=== PATIENT | male | born 1955 | race Caucasian/White ===

== ENCOUNTER 2018-05-31 10:46 | Day surgery (SDC) | payer OTHER ==
--- NOTE | 2018-05-27 20:19 | HP ---
PREOPERATIVE HISTORY AND PHYSICAL: DATE OF ADMISSION/SURGERY: 05/31/18 - [facility] DATE OF OFFICE VISIT: 05/27/18 ATTENDING SURGEON: Dede Dinh MD * (DICTATED BY IRAM ELKINS) PROCEDURE: Left shoulder arthroscopic rotator cuff repair, decompression and debridement, excision of distal clavicle and subpectoral biceps tenodesis. CHIEF COMPLAINT: Left shoulder. HISTORY OF PRESENT ILLNESS: Mr. Brenner is a 62-year-old male, who presents to the clinic for left shoulder pain due to rotator cuff tear, biceps tendinitis and AC joint arthritis. He has failed conservative measures and therefore agreed to undergo a left shoulder arthroscopic rotator cuff repair, decompression, debridement, excision of distal clavicle, and subpectoral biceps tenodesis with Dr. Dinh on 05/31/18. PAST MEDICAL HISTORY: Hypertension, history of heart attack with quadruple bypass, high cholesterol, arthritis, diverticulosis; non-Hodgkin lymphoma, he has been cancer free for 3 years, and BPH. PAST SURGICAL HISTORY: Right knee arthroscopy, right knee meniscus x2 and quadruple bypass in 2003, also placement of Mediport. The patient denies prior complications with anesthesia. MEDICATIONS: 1. Metoprolol succinate 50 mg 1 by mouth every day in the morning. 2. Niacin 500 mg 1 tablet at night. 3. Aspirin 81 mg 1 by mouth every day. 4. Colace 100 mg 1 by mouth twice a day as needed for constipation. 5. Multivitamin one daily. 6. Rosuvastatin calcium 20 mg 1 by mouth every day. 7. Irbesartan 150 mg, take 1 tab by mouth every day. ALLERGIES: To CONTRAST DYE. FAMILY HISTORY: Positive for heart disease, hypertension, cancer. Denies family history of DVT or PE. SOCIAL HISTORY: He lives with his spouse. He is a professor at [employer]. He quit smoking in 1986 but smoked for 10 years. He reports occasional alcohol consumption about 7 beverages a week. He exercises regularly. He is right hand dominant. REVIEW OF SYSTEMS: A 14-point review of systems was reviewed with the patient. Positive for current complaint, otherwise negative. Denies fever, chills, chest pain, shortness of breath, history of DVT or PE, history of bleeding disorder. PHYSICAL EXAMINATION GENERAL: A 62-year-old well-developed, well-nourished male in no acute distress. VITAL SIGNS: Height 70, weight 236. Blood pressure 130/66, respiratory rate 18. BMI 33.9. HEENT: Normocephalic, atraumatic. PERRL. Throat clear. NECK: Supple. PULMONARY: Lungs are clear to auscultation bilaterally. No wheezing, rhonchi or rales. CARDIO: Regular rate and rhythm. S1 and S2. No murmurs, gallops or rubs. No edema. ABDOMEN: Positive bowel sounds, soft, nontender. NEURO: Alert and oriented x3. Cranial nerves grossly intact. Sensation intact to light touch. MUSCULOSKELETAL: Left upper extremity, skin is intact. No warmth or erythema. Tenderness over the bicipital groove and the AC joint. Forward flexion, abduction 175, external rotation 75, internal rotation T6. +4 to 5 strength on supraspinatus testing. +4 to 5 to infraspinatus testing. +5/5 to belly press and bear hug. Positive [place], Speed, impingement and Cool testing. +2 radial pulses. Sensation intact to light touch distally. DIAGNOSTIC STUDIES/LAB DATA: MRI and x-rays reveal full thickness tear of the supraspinatus tendon and AC joint arthritis with some biceps tendinitis of the left shoulder. IMPRESSION: Left shoulder acromioclavicular joint arthritis, biceps tendinitis and rotator cuff tear. PLAN/RECOMMENDATIONS: The patient is scheduled to undergo a left shoulder arthroscopic rotator cuff repair, decompression, debridement, excision distal clavicle and subpectoral biceps tenodesis with Dr. Dinh on 05/31/18. He will follow up 10 to 14 days postop for followup and suture removal. Percocet will be used for postop pain management and Keflex for antibiotic prophylaxis. IRAM ELKINS [id number]/[facility] #: [id number] MTDD
[~2018-05-31 10:46] MED LIST: Buffered Lidocaine 0.9% SYRIN* 5 ML/SYR SYRINGE INTRADERM ONE; Dexamethasone IV* 4 MG/ML 1 ML (4 MG) IV SLOW PU ONE; Famotidine IV* 10 MG/ML 2 ML (20 mg) IV ONE; Lactated Ringers 1000 ML Bag* 1,000 ML IV SCH
[2018-05-31] MEDS ORDERED: ceFAZolin 2 GM PREMIX in ORs 2 GM/50 ML BAG IVPB ONE (10:56)
[2018-05-31] MEDS ORDERED: Dexamethasone IV* 4 MG/ML 1 ML (4 MG) ONE (10:56)
[2018-05-31] MEDS ORDERED: Famotidine IV* 10 MG/ML 2 ML (20 mg) ONE (10:56)
[2018-05-31] MEDS ORDERED: Lidocaine 2% PF * 5 ML VIAL ONE (11:57)
[2018-05-31] MEDS ORDERED: Propofol* 10 MG/ML 20 ML BTL ONE (11:57)
[2018-05-31] MEDS ORDERED: Midazolam* 1 MG/ML 2 ML VIAL (2 MG) ONE (11:58)
[2018-05-31] MEDS ORDERED: fentaNYL* 50 MCG/ML 2 ML VIAL (100 MCG VIAL) ONE ×2 (11:58→14:19)
[2018-05-31] MEDS ORDERED: ROPIVACAINE 5 MG/ML 30 ML BTL (0.5%) ONE ×2 (12:23→12:33)
[2018-05-31] MEDS ORDERED: Ondansetron INJ* 2 MG/ML VIAL ONE (14:21)
[2018-05-31] MEDS ORDERED: DiMENhydriNATE IV* 50 MG/ML VIAL IV PUSH PRN (15:13)
[2018-05-31] MEDS ORDERED: fentaNYL* 50 MCG/ML 2 ML VIAL (100 MCG VIAL) IV PRN (15:13)
[2018-05-31] MEDS ORDERED: Naloxone* 0.4 MG/ML 1 ML VIAL IV PRN (15:13)
[2018-05-31] MEDS ORDERED: oxyCODONE/Acetamin 5/325 MG* TAB PO PRN (15:13)
[2018-05-31] MEDS ORDERED: HYDROcodone/ACETAMIN 5-325 MG* 1 TAB PO PRN (15:13)
[2018-05-31] MEDS ORDERED: Ketorolac INJ* 30 MG/ML 1 ML VIAL IV PRN (15:13)
[2018-05-31 15:38] VITALS: BP 114/61
--- NOTE | 2018-06-01 11:31 | OP ---
DATE OF OPERATION: 05/31/18 [facility] DATE OF : 57 SURGEON: Dede Dinh MD SNUFF BLENDER: IRAM Kim. An plastic surgery assistant was needed for the entirety of the case to help with positioning and retraction, and was utilized throughout all portions of the case. ANESTHESIOLOGIST: Dr. Dahl. ANESTHESIA: General with interscalene block. PRE-OP DIAGNOSIS: Left shoulder full-thickness tear of the rotator cuff with acromioclavicular joint arthritis and superior labrum SLAP type 2 tear with bicipital tendonitis and tendinosis. POST-OP DIAGNOSIS: Left shoulder full-thickness tear of the rotator cuff with acromioclavicular joint arthritis and superior labrum SLAP type 2 tear with bicipital tendonitis and tendinosis. OPERATIVE PROCEDURE: Left shoulder arthroscopy with: 1. Extensive glenohumeral debridement. 2. Subacromial decompression with acromioplasty. 3. Distal clavicle excision. 4. Rotator cuff repair. 4. Open subpectoral biceps tenodesis. COMPLICATIONS: None. ESTIMATED BLOOD LOSS: Minimal. INDICATIONS: Prashant Brenner is a 62-year-old male who sustained an injury in January when he was playing golf; after he had a drive, he had felt a pop. He was treated initially by my Sports Medicine colleague, but he continued to struggle. He had MRI indicating full-thickness tear. He elected to proceed with surgical treatment. Risks and benefits were discussed at length including , but are not limited to, bleeding; infection; damage to nerves, vessels, surrounding structures; wound nonhealing; persistent pain, need for further surgery; scarring; stiffness; incomplete relief of symptoms; risk of anesthesia. DESCRIPTION OF PROCEDURE: The patient was greeted in the preoperative area by the attending surgeon. The correct extremity was marked. Consent was confirmed. The patient then underwent interscalene nerve block, after which he was brought back to the operating suite where he was placed in supine position on the operating table. He then underwent general anesthesia with endotracheal intubation, after which he was placed in the right lateral decubitus position with axillary roll. All bony prominences were padded. He was secured with a pegboard. The left shoulder was prepped and draped in the usual sterile fashion beginning with chlorhexidine soap, scrub, and alcohol wipe and final prep with ChloraPrep. After appropriate surgical pause indicating side, site, procedure, and administration of antibiotics, standard postero-lateral portal was made sharply with #11 blade. The scope was introduced into the joint and the joint was examined. There were grade 0 to 1 changes. The anterior, posterior, and superior labrum had mild fraying. The inferior recess was intact. The superior labrum had tearing as well as the biceps tendinosis and tendinopathy. Anterior portal was made in an outside-in fashion. The biceps was then tenotomized. The anterior, posterior, and superior labrums were debrided back. The subscap was found to be intact with significant amounts of synovitis. There was evidence of full-thickness retracted tear to the level of the glenoid. Once this intraarticular work was completed, attention was directed to the subacromial space. With the scope in the subacromial space, the lateral port was made in outside fashion. Shaver was used to debride back the abundant bursa. There was evidence of full-thickness L-shaped tear with significant retraction involving supra and part of the infraspinatus tendon. At this point, the undersurface of the acromion was skeletonized using the electrocautery device. This was irregular acromion. The shaver was used to debride back the bursa. Care was taken to maintain hemostasis. There were significant friable tissue. The CA ligament was released. A 4.0 oval bur was used to remove acromioplasty. This helped to expose the AC joint, which was also irregular and inferior spur as well as stenosis. Attention was then directed to the AC joint. The scope positioned into the anterior portal side, the distal 8 cm. The clavicles were then resected using 4.0 oval bur. Once the inspection was done, the cannula was taken through some gentle range of motion. No evidence of impingement was identified. Final images were obtained. The debris was removed at this point and attention was directed to rotator cuff. The greater tuberosity was skeletonized. There was evidence of some of the rotator cuff still being attached indicating this was a traumatic type of tear. The shaver and electrocautery device was used to expose the greater tuberosity , which was then rasped and then 4.0 oval bur was used to gently decorticate. At this point, the cuff tissue was then carefully mobilized, any adhesions were removed. The cuff was found to be able to fully restore as it was large outside shape tendon. Of course, there was some tearing and there was some fraying. The tissue quality was okay. At this point, through 2 separate stab incisions, two 4.75 Healicoils were placed with excellent purchase. Suture was then passed in a horizontal mattress configuration. Beginning at the corner of the L, then I want to make sure if it was reapproximated. This helped to nicely reapproximate the tendon. The sutures were then tied down beginning anteriorly and then posteriorly. Once chamfers were made, suture was then passed through a Multifix to be placed anterolaterally and remaining chamfers were passed posterolaterally through Multifix with excellent purchase. This helped to compress the cuff and restore the cuff. Final images were obtained. Attention was then directed to the biceps. The bed was airplaned to the left side. The anterior aspect of the shoulder was prepped with ChloraPrep, 15-blade was used to make an incision. The soft tissues were carefully dissected to expose the pec and fascia was then elevated. The groove was identified. Next, the fascia was elevated. The biceps was brought through the groove and then, the groove was then prepared in usual fashion with electrocautery device, the red ball rasp, and osteotome for bony bleeding bed. Q- Fix was then drilled unicortically with excellent purchase. Q-Fix was deployed with excellent purchase. Sutures were then passed through the tendon in a Leif- West type configuration approximately 1 cm to the proximal musculotendinous junction. Excess stump was excised. The wounds were copiously irrigated with sterile saline. The anterior wound was closed in layers of 2-0 Vicryl and 3-0 Monocryl, ports with 3-0 nylon. Sterile dressings were applied. Cryo/Cuff and an UltraSling were applied. He was awoken from anesthesia and then transferred to the PACU in stable condition. POSTOPERATIVE PLAN: He will be discharged on pain medication as well as antibiotics. DVT prophylaxis was considered, but deferred due to no previous personal or family history. I will see the patient back in 10 to 14 days. [id number]/[facility] #: [id number] [facility]ENTER[facility]aley
== END 2018-05-31 16:08 | disposition home or self-care (01) ==
LOC: OREAST 10:46
PROVIDERS: ATTEND Orthopaedic Surgery
DX: M19.212 Secondary osteoarthritis, left shoulder (principal); M75.122 Complete rotator cuff tear or rupture of left shoulder, not specified as traumatic; I10 Essential (primary) hypertension; I25.2 Old myocardial infarction; Z85.72 Personal history of non-Hodgkin lymphomas; M19.90 Unspecified osteoarthritis, unspecified site; Z79.82 Long term (current) use of aspirin; Z79.899 Other long term (current) drug therapy; Z87.891 Personal history of nicotine dependence; G89.18 Other acute postprocedural pain
CPT/HCPCS: C1713; C1776; J0690; J1100; J2250; J2405; J2704; J2795; J3010

== ENCOUNTER 2022-05-27 11:51 | Observation (INO) ==
[~2022-05-27 11:51] MED LIST changes: -Buffered Lidocaine 0.9% SYRIN* 5 ML/SYR SYRINGE INTRADERM ONE; +Buffered Lidocaine 1% SYRIN 1 ml INTRADERM ONE; -Dexamethasone IV* 4 MG/ML 1 ML (4 MG) IV SLOW PU ONE; -Famotidine IV* 10 MG/ML 2 ML (20 mg) IV ONE; -Lactated Ringers 1000 ML Bag* 1,000 ML IV SCH; +Lactated Ringers 1000 ml BAG 1,000 ML IV SCH
[2022-05-27] MEDS ORDERED: ceFAZolin 2 GM PREMIX 2 GM/50 ML BAG ONE (12:13)
[2022-05-27] MEDS ORDERED: Midazolam 2 mg/2 ml VIAL 1 mg/ml 2 ml VIAL (2 mg) ONE ×2 (13:35→14:17)
[2022-05-27] MEDS ORDERED: ROPIVACAINE 5 MG/ML 30 ML BTL (0.5%) ONE ×2 (13:38→14:35)
[2022-05-27] MEDS ORDERED: Magnesium Hydroxide LIQ 30 ML UDC PO PRN (14:25)
[2022-05-27] MEDS ORDERED: Lactulose 30 ml UDC PO PRN (14:25)
[2022-05-27] MEDS ORDERED: Morphine 2 MG/ML SYRINGE IV PRN (14:25)
[2022-05-27] MEDS ORDERED: Ondansetron 4 mg VIAL 2 MG/ML 2 ml VIAL IV PRN ×2 (14:25→19:12)
[2022-05-27] MEDS ORDERED: Ondansetron ODT 4 mg TAB 4 MG TAB PO PRN (14:25)
[2022-05-27] MEDS ORDERED: Lactated Ringers 1000 ml BAG 1,000 ML IV SCH (15:00)
[2022-05-27] MEDS ORDERED: Propofol 10 MG/ML 20 ML BTL ONE ×2 (16:04→17:01)
[2022-05-27] MEDS ORDERED: Ketamine HCL 50 mg/ml 10 ml VIAL (500 MG) ONE (16:19)
[2022-05-27] MEDS ORDERED: Glycopyrrolate IV 0.2 MG/ML 1 ML VIAL ONE (16:19)
[2022-05-27] MEDS ORDERED: fentaNYL 100 mcg/2 ml 50 MCG/ML VIAL ONE (19:06)
[2022-05-27] MEDS ORDERED: HYDROmorphone 1 MG/1 ML SYRINGE IV PRN (19:12)
[2022-05-27] MEDS ORDERED: fentaNYL 100 mcg/2 ml 50 MCG/ML VIAL IV PRN (19:12)
[2022-05-27] MEDS ORDERED: Naloxone 0.4 mg VIAL 0.4 mg/ml 1 ml VIAL IV PRN (19:12)
[2022-05-27] MEDS: Magnesium Hydroxide LIQ 30 ML UDC PO SCH (20:57)
[2022-05-27] MEDS: ceFAZolin 1 GM ADVAN 1 GM in NS 0.9% 50 ML 50 ML IVPB SCH (23:22)
[2022-05-28] MEDS: ceFAZolin 1 GM ADVAN 1 GM in NS 0.9% 50 ML 50 ML IVPB SCH ×2 (06:10→12:51)
[2022-05-28 06:22] LABS: Hematocrit 27 % (42-52); Mean Platelet Volume 8.7 fL (7.4-10.4); Platelet Count 106 10^3/uL (150-450)
[2022-05-28 06:50] LABS: Calcium 8.3 mg/dL (8.6-10.3); Potassium 4.7 mmol/L (3.5-5.0); eGFR CKD-EPI 96.8 (>60)
[2022-05-28] MEDS: Magnesium Hydroxide LIQ 30 ML UDC PO SCH (07:47)
[2022-05-28] MEDS ORDERED: Irbesartan 150 mg TAB (NF) PO SCH (09:00)
[2022-05-28] MEDS ORDERED: Vitamin THERAPEUTIC TAB PO SCH (09:00)
[2022-05-28 12:25] VITALS: BP 110/56
== END 2022-05-28 13:53 | disposition home or self-care (01) ==
LOC: SSU 11:51 → OR 11:51 → SUATTDRO 19:51
PROVIDERS: ADMIT Orthopaedic Surgery Adult Reconstructive Orthopaedic Surgery; ATTEND Hospitalist

== ENCOUNTER 2022-05-31 10:12 | Observation (INO) ==
[2022-05-31 10:50] LABS: ABS Lymphocytes 1.2 10^3/ul (1.0-4.8); ABS Monocytes 0.7 10^3/ul (0-0.8); ABS Neutrophils 3.2 10^3/ul (1.5-7.7); Eosinophil % 0.8 %; Hematocrit 24 % (42-52); Hemoglobin 7.7 g/dL (14.0-18.0); Lymphocyte % 23.4 %; Mean Corpuscular HGB Conc 32 g/dL (31-36); Mean Corpuscular Hemoglobin 28 pg (27-31); Mean Corpuscular Volume 87 fL (80-94); Mean Platelet Volume 8.2 fL (7.4-10.4); Platelet Count 148 10^3/uL (150-450); Red Blood Count 2.74 10^6 /uL (4.18-5.48); Red Cell Distribution Width 14 % (10-15); White Blood Count 5.2 10^3/uL (3.5-10.8)
[2022-05-31] MEDS ORDERED: methylPREDNISolone SOD SUCC 125 mg 2 ML VIAL IV ONE (10:53)
[2022-05-31 11:12] LABS: High Sens Troponin Baseline 16 pg/mL (<20)
[2022-05-31 11:33] LABS: ALT 14 U/L (7-52); AST 21 U/L (13-39); Albumin 3.3 g/dL (3.2-5.2); Albumin/Globulin Ratio 1.4 (1-3); Alkaline Phosphatase 67 U/L (35-149); Anion Gap 6 mmol/L (2-11); Blood Urea Nitrogen 11 mg/dL (6-24); CO2 Carbon Dioxide 28 mmol/L (22-32); Calcium 8.2 mg/dL (8.6-10.3); Chloride 101 mmol/L (101-111); Globulin 2.3 g/dL (2-4); Glucose 110 mg/dL (70-100); Potassium 3.9 mmol/L (3.5-5.0); Sodium 135 mmol/L (135-145); Total Protein 5.6 g/dL (6.4-8.9)
[2022-05-31 12:27] LABS: High Sensitivity Troponin 1 Hr 15 pg/mL (<20)
[2022-05-31] MEDS ORDERED: Lactated Ringers 1000 ml BAG 1,000 ML IV ONE (14:00)
[2022-05-31] MEDS: Heparin DRIP 25,000 UNITS BAG 25,000 UNITS/500 ML BAG IV SCH (14:45)
[2022-05-31 14:52] LABS: ABS Lymphocytes 1.1 10^3/ul (1.0-4.8); ABS Monocytes 0.2 10^3/ul (0-0.8); ABS Neutrophils 3.8 10^3/ul (1.5-7.7); Eosinophil % 0.3 %; Hematocrit 23 % (42-52); Hemoglobin 7.3 g/dL (14.0-18.0); Lymphocyte % 21.6 %; Mean Corpuscular HGB Conc 32 g/dL (31-36); Mean Corpuscular Hemoglobin 28 pg (27-31); Mean Corpuscular Volume 86 fL (80-94); Mean Platelet Volume 8.3 fL (7.4-10.4); Platelet Count 150 10^3/uL (150-450); Red Blood Count 2.63 10^6 /uL (4.18-5.48); Red Cell Distribution Width 14 % (10-15); White Blood Count 5.2 10^3/uL (3.5-10.8)
[2022-05-31 14:55] LABS: Total Iron Binding Capacity 195 mcg/dL (250-450); Transferrin 139 mg/dL (203-362)
[2022-05-31 14:56] LABS: % Iron Saturation 10 % (15-55); Iron < 20 ug/dL (50-212); Unsaturated Iron Binding 175 ug/dL
[2022-05-31] MEDS ORDERED: Heparin 5000 UNITS/ML 1 mL VIAL IV SCH (15:00)
[2022-05-31 15:06] LABS: Ferritin 279.6 ng/mL (24-336)
[2022-05-31 15:58] LABS: eGFR CKD-EPI 103.6 (>60)
[2022-05-31 17:37] LABS: Hematocrit for Retic CNT 24 % (42-52); RBC Retic Count 2.74 10^6/uL (4.18-5.48)
[2022-05-31 17:42] LABS: Corrected Retic Count 0.9 % (0.5-1.5); Immature Retic Fraction 0.57
[2022-05-31 17:53] LABS: LDH 152 U/L (140-271)
[2022-05-31] MEDS ORDERED: Aspirin EC 81 mg TAB.EC (enteric coated) PO SCH (21:00)
[2022-05-31] MEDS ORDERED: Magnesium Hydroxide LIQ 30 ML UDC PO PRN (23:18)
[2022-05-31] MEDS ORDERED: Senna TAB 8.6 mg TAB PO PRN (23:18)
[2022-05-31 23:29] LABS: Hematocrit 22 % (42-52); Hemoglobin 7.4 g/dL (14.0-18.0); Mean Corpuscular HGB Conc 33 g/dL (31-36); Mean Corpuscular Hemoglobin 28 pg (27-31); Mean Corpuscular Volume 85 fL (80-94); Mean Platelet Volume 7.9 fL (7.4-10.4); Platelet Count 137 10^3/uL (150-450); Red Blood Count 2.63 10^6 /uL (4.18-5.48); Red Cell Distribution Width 15 % (10-15); White Blood Count 3.8 10^3/uL (3.5-10.8)
[2022-06-01] MEDS: Heparin DRIP 25,000 UNITS BAG 25,000 UNITS/500 ML BAG IV SCH ×2 (06:15→23:25)
[2022-06-01 07:29] LABS: ABS Lymphocytes 1.3 10^3/ul (1.0-4.8); ABS Monocytes 0.3 10^3/ul (0-0.8); ABS Neutrophils 2.2 10^3/ul (1.5-7.7); Hematocrit 23 % (42-52); Hemoglobin 7.6 g/dL (14.0-18.0); Lymphocyte % 33.9 %; Mean Corpuscular HGB Conc 34 g/dL (31-36); Mean Corpuscular Hemoglobin 29 pg (27-31); Mean Corpuscular Volume 86 fL (80-94); Mean Platelet Volume 8.1 fL (7.4-10.4); Platelet Count 133 10^3/uL (150-450); Red Blood Count 2.66 10^6 /uL (4.18-5.48); Red Cell Distribution Width 14 % (10-15); White Blood Count 3.8 10^3/uL (3.5-10.8)
[2022-06-01 07:56] LABS: Activated Partial Thrombo Time 81.2 seconds (26.0-38.0)
[2022-06-01 08:40] LABS: Albumin 3.2 g/dL (3.2-5.2)
[2022-06-01 08:41] LABS: Calcium 8.4 mg/dL (8.6-10.3); Potassium 3.9 mmol/L (3.5-5.0); Total Bilirubin 0.5 mg/dL (0.2-1.0)
[2022-06-01 08:46] LABS: Albumin/Globulin Ratio 1.5 (1-3); C Reactive Protein 139.23 mg/L (<8.01); Globulin 2.2 g/dL (2-4); Total Protein 5.4 g/dL (6.4-8.9)
[2022-06-01 08:49] LABS: eGFR CKD-EPI 106.1 (>60)
[2022-06-01] MEDS: Psyllium PAK PO SCH (10:02)
[2022-06-01 20:30] LABS: Hematocrit 24 % (42-52); Hemoglobin 8.2 g/dL (14.0-18.0)
[2022-06-02 08:40] LABS: Hematocrit 26 % (42-52); Hemoglobin 8.6 g/dL (14.0-18.0); Mean Corpuscular HGB Conc 34 g/dL (31-36); Mean Corpuscular Hemoglobin 29 pg (27-31); Mean Corpuscular Volume 86 fL (80-94); Mean Platelet Volume 8.1 fL (7.4-10.4); Platelet Count 162 10^3/uL (150-450); Red Blood Count 2.99 10^6 /uL (4.18-5.48); Red Cell Distribution Width 15 % (10-15); White Blood Count 6.1 10^3/uL (3.5-10.8)
[2022-06-02] MEDS ORDERED: Polyethylene Glycol 3350 17 GM PACKET PO SCH (09:00)
[2022-06-02 09:06] LABS: Calcium 8.4 mg/dL (8.6-10.3); Potassium 3.8 mmol/L (3.5-5.0); eGFR CKD-EPI 102.7 (>60)
[2022-06-02] MEDS: Psyllium PAK PO SCH (09:59)
[2022-06-02 15:25] VITALS: BP 105/61
== END 2022-06-02 16:45 | disposition home or self-care (01) ==
LOC: ED 10:12 → EDHOLD 10:12 → SUATTDRO 13:49 → MED 20:30
PROVIDERS: ADMIT Student in an Organized Health Care Education/Training Program; ATTEND Internal Medicine

== ENCOUNTER 2023-09-07 14:24 | Inpatient (IN) ==
[2023-09-07 15:15] LABS: Hematocrit 34.1 % (38-53); Hemoglobin 11.1 g/dL (13.2-16.3); Mean Corpuscular Hemoglobin 29.3 pg (27-33); Mean Corpuscular Hgb Conc 32.5 g/dL (31-36); Mean Corpuscular Volume 90.2 fL (80-97); Mean Platelet Volume 7.3 fL (7.5-11.2); Platelet Count 240 10^3/uL (150-450); Red Blood Count 3.78 10^6/uL (4.06-5.63); Red Cell Distribution Width 18.2 % (12-17); White Blood Count 25.5 10^3/uL (3.6-10.2)
[2023-09-07 15:24] LABS: ABS Basophils 0.1 10^3/uL (0.0-0.1); ABS Eosinophils 0.4 10^3/uL (0.0-0.5); ABS Lymphocytes 4.2 10^3/uL (1.0-4.8); ABS Monocytes 1.9 10^3/uL (0.0-1.1); ABS Neutrophils 18.9 10^3/uL (1.5-7.6); ABS Nucleated RBC 0.01 10^3/ul; Eosinophil % 1.4 %; Lymphocyte % 16.4 %
[2023-09-07] MEDS: Lactated Ringers 1000 ml BAG 1,000 ML IV ONE (15:26)
[2023-09-07 15:28] LABS: INR 1.04 (0.83-1.13)
[2023-09-07 16:04] LABS: Albumin/Globulin Ratio 1.2 (1-3); Creatinine, Serum 0.45 mg/dL (0.67-1.17); Globulin 2.5 g/dL (2-4); Magnesium 1.8 mg/dL (1.9-2.7); Potassium 3.9 mmol/L (3.5-5.0); Total Bilirubin 0.6 mg/dL (0.2-1.0); Total Protein 5.5 g/dL (6.4-8.9); eGFR CKD-EPI 116.1 (>60)
[2023-09-07 17:08] LABS: High Sensitivity Troponin 1 Hr 26 pg/mL (<20)
[2023-09-07] MEDS: Magnesium Sulfate 2 gm BAG 2 GM/50 ML BAG IVPB ONE (18:01)
[2023-09-07] MEDS: Iohexol 350 (CONTRAST) 500 ML MDV IV ONE (20:17)
[2023-09-07] MEDS: Piperacillin/Tazobac 3.375 BAG 3.375 GM/100 ML BAG IV ONE (21:59)
[2023-09-07] MEDS ORDERED: Zosyn per Pharmacy NOTE FOLLOW UP SCH (22:00)
[2023-09-07] MEDS ORDERED: Vancomycin 750 MG in NS 0.9% 250 ml 250 ML IVPB SCH (22:00)
[2023-09-07] MEDS: Vancomycin 750 MG in NS 0.9% 250 ML IVPB ONE (23:24)
[2023-09-08] MEDS ORDERED: Heparin DRIP 25,000 UNITS BAG 25,000 UNITS/250 ML BAG IV SCH (01:45)
[2023-09-08] MEDS ORDERED: Levalbuterol 1.25MG/0.5ML NEB.SOL INH PRN (01:55)
[2023-09-08] MEDS ORDERED: Vancomycin per Pharmacy 1 EA NOTE FOLLOW UP SCH (02:00)
[2023-09-08] MEDS ORDERED: Heparin 5000 UNITS/ML 1 mL VIAL IV SCH (02:00)
[2023-09-08 03:24] LABS: Activated Partial Thrombo Time 26.7 seconds (26.0-38.0); INR 1.02 (0.83-1.13)
[2023-09-08] MEDS: Heparin 5000 UNITS/ML 1 mL VIAL IV SCH (03:45)
[2023-09-08] MEDS ORDERED: Heparin DRIP 25,000 UNITS BAG 25,000 UNITS/250 ML BAG IV ONE (03:48)
[2023-09-08] MEDS: Heparin DRIP 25,000 UNITS BAG 25,000 UNITS/250 ML BAG IV SCH (03:50)
[2023-09-08] MEDS: ZOSYN 3.375 GM Q8H per EXTENDED INFUSION IV SCH ×2 (03:56→18:29)
[2023-09-08 06:09] LABS: Hematocrit 30.5 % (38-53); Mean Corpuscular Hemoglobin 29.6 pg (27-33); Mean Corpuscular Hgb Conc 32.8 g/dL (31-36); Mean Corpuscular Volume 90.2 fL (80-97); Mean Platelet Volume 7.2 fL (7.5-11.2); Platelet Count 229 10^3/uL (150-450); Red Blood Count 3.38 10^6/uL (4.06-5.63); Red Cell Distribution Width 17.8 % (12-17); White Blood Count 30.4 10^3/uL (3.6-10.2)
[2023-09-08 06:25] LABS: ABS Basophils 0.3 10^3/uL (0.0-0.1); ABS Eosinophils 0.7 10^3/uL (0.0-0.5); ABS Lymphocytes 4.1 10^3/uL (1.0-4.8); ABS Monocytes 2.3 10^3/uL (0.0-1.1); ABS Nucleated RBC 0.01 10^3/ul; Eosinophil % 2.2 %; Lymphocyte % 13.6 %
[2023-09-08 07:10] LABS: Albumin 2.7 g/dL (3.2-5.2); Albumin/Globulin Ratio 1.4 (1-3); Calcium 7.8 mg/dL (8.6-10.3); Creatinine, Serum 0.47 mg/dL (0.67-1.17); Total Bilirubin 0.5 mg/dL (0.2-1.0); Total Protein 4.7 g/dL (6.4-8.9); eGFR CKD-EPI 114.6 (>60)
[2023-09-08] MEDS ORDERED: Vancomycin 1000 MG in NS 0.9% 250 ML IVPB SCH (08:00)
[2023-09-08] MEDS: Vancomycin 1,250 MG in NS 0.9% 250 ml 250 ML IVPB SCH ×2 (09:01→16:00)
[2023-09-08] MEDS: Aspirin EC 81 mg TAB.EC (enteric coated) PO SCH (09:02)
[2023-09-08] MEDS: Psyllium PAK PO SCH (09:03)
[2023-09-08 14:50] LABS: Body Fluid Appearance Cloudy; Body Fluid Color Red; Body Fluid Source Pleural Fluid
[2023-09-08 15:10] LABS: Body Fluid Total Nucleated 1897 /mcL
[2023-09-08 15:57] LABS: Body Fluid Mono 6 %; Body Fluid Total Cells Counted 200
[2023-09-08] MEDS: Fluticasone NASAL SPRAY 50MCG 16 gm SPRAY BTL INTRANASAL SCH (20:52)
[2023-09-08] MEDS: Enoxaparin 40 MG/0.4 ML SYR SUBCUT SCH (20:52)
[2023-09-09 07:27] LABS: Hematocrit 29.2 % (38-53); Hemoglobin 9.5 g/dL (13.2-16.3); Mean Corpuscular Hemoglobin 29.5 pg (27-33); Mean Corpuscular Hgb Conc 32.5 g/dL (31-36); Mean Corpuscular Volume 90.8 fL (80-97); Mean Platelet Volume 6.9 fL (7.5-11.2); Platelet Count 201 10^3/uL (150-450); Red Blood Count 3.22 10^6/uL (4.06-5.63); Red Cell Distribution Width 17.7 % (12-17); White Blood Count 22.2 10^3/uL (3.6-10.2)
[2023-09-09] MEDS: Vancomycin Trough Check NOTE FOLLOW UP ONE (07:57)
[2023-09-09 08:01] LABS: ABS Basophils 0.1 10^3/uL (0.0-0.1); ABS Eosinophils 0.5 10^3/uL (0.0-0.5); ABS Lymphocytes 3.9 10^3/uL (1.0-4.8); ABS Monocytes 1.7 10^3/uL (0.0-1.1); ABS Nucleated RBC 0.01 10^3/ul; Eosinophil % 2.3 %; Lymphocyte % 17.7 %
[2023-09-09 08:16] LABS: Creatinine, Serum 0.44 mg/dL (0.67-1.17); eGFR CKD-EPI 116.9 (>60)
[2023-09-09 13:41] VITALS: BP 111/66
[2023-09-09 15:21] LABS: Lactate Dehydrogenase, BF 238 U/L
[2023-09-10 10:02] LABS: Glucose, BF 114 mg/dL
[2023-09-10 10:03] LABS: Fluid Type, Protein, Total PLEURAL FLUID; Total Protein, BF 3.8 g/dL
== END 2023-09-09 16:45 | disposition home or self-care (01) | DRG 194 ==
LOC: ED 14:24 → EDHOLD 14:24 → SUATTDRO 23:06 → MEDTELE 09-08 13:19
PROVIDERS: ADMIT Internal Medicine; ATTEND Internal Medicine

== ENCOUNTER 2023-10-06 06:52 | Observation (INO) ==
[2023-10-06 07:30] LABS: INR 0.96 (0.83-1.13)
[2023-10-06 07:34] LABS: Hemoglobin 8.5 g/dL (13.2-16.3); Mean Corpuscular Hemoglobin 28.4 pg (27-33); Mean Corpuscular Hgb Conc 31.5 g/dL (31-36); Mean Corpuscular Volume 90.1 fL (80-97); Mean Platelet Volume 7.5 fL (7.5-11.2); Platelet Count 125 10^3/uL (150-450); Red Blood Count 2.99 10^6/uL (4.06-5.63); Red Cell Distribution Width 17.4 % (12-17); White Blood Count 48.6 10^3/uL (3.6-10.2)
[2023-10-06 07:50] LABS: Albumin 2.8 g/dL (3.2-5.2); Albumin/Globulin Ratio 1.4 (1-3); Calcium 7.7 mg/dL (8.6-10.3); Creatinine, Serum 0.47 mg/dL (0.67-1.17); Potassium 3.7 mmol/L (3.5-5.0); Total Bilirubin 0.4 mg/dL (0.2-1.0); Total Protein 4.8 g/dL (6.4-8.9); eGFR CKD-EPI 114.6 (>60)
[2023-10-06 08:02] LABS: ABS Basophils 0.5 10^3/uL (0.0-0.1); ABS Eosinophils 0.3 10^3/uL (0.0-0.5); ABS Lymphocytes 10.2 10^3/uL (1.0-4.8); ABS Monocytes 2.2 10^3/uL (0.0-1.1); ABS Neutrophils 35.4 10^3/uL (1.5-7.6); ABS Nucleated RBC 0.01 10^3/ul; Eosinophil % 0.5 %
[2023-10-06 08:52] LABS: High Sensitivity Troponin 1 Hr 28 pg/mL (<20)
[2023-10-06] MEDS ORDERED: Senna TAB 8.6 mg TAB PO PRN (10:09)
[2023-10-06] MEDS: ceFAZolin 1 GM ADVAN 1 GM ADDV.VIAL IVPB ONE (15:00)
[2023-10-06] MEDS: fentaNYL 100 mcg/2 ml 50 MCG/ML VIAL ONE ×2 (15:00)
[2023-10-06 18:30] LABS: C Reactive Protein 54.64 mg/L (<8.01)
[2023-10-06 19:20] LABS: Erythrocyte Sed Rate 58 mm/Hr (0-19)
[2023-10-07 08:00] LABS: Calcium 7.7 mg/dL (8.6-10.3); Creatinine, Serum 0.44 mg/dL (0.67-1.17); Magnesium 1.7 mg/dL (1.9-2.7); eGFR CKD-EPI 116.9 (>60)
[2023-10-07] MEDS: Albuterol 2.5mg/3 ml (0.083%) NEB.SOLN INH SCH (08:24)
[2023-10-07 08:27] LABS: ABS Basophils 0.1 10^3/uL (0.0-0.1); ABS Eosinophils 0.2 10^3/uL (0.0-0.5); ABS Monocytes 2.1 10^3/uL (0.0-1.1); ABS Neutrophils 35.2 10^3/uL (1.5-7.6); ABS Nucleated RBC 0.01 10^3/ul; Anisocytosis 1+; Eosinophil % 0.4 %; Hematocrit 27.3 % (38-53); Hemoglobin 8.7 g/dL (13.2-16.3); Lymphocyte % 9.7 %; Mean Corpuscular Hemoglobin 28.8 pg (27-33); Mean Corpuscular Volume 89.9 fL (80-97); Mean Platelet Volume 7.6 fL (7.5-11.2); Platelet Count 136 10^3/uL (150-450); Red Blood Count 3.03 10^6/uL (4.06-5.63); Red Cell Distribution Width 17.7 % (12-17); White Blood Count 41.6 10^3/uL (3.6-10.2)
[2023-10-07] MEDS: Enoxaparin 100 MG/ML SYR SUBCUT SCH (09:50)
[2023-10-07 10:29] VITALS: BP 121/67
[2023-10-08 15:44] LABS: ALP Intestine 9.7 IU/L (0.0-11.0); ALP Liver 1% 57.9 % (27.8-76.3); ALP Liver 2 238.1 IU/L (0.0-5.8); ALP Liver 2% 29.4 % (0.0-8.0); ALP Placental Not Present; Alkaline Phosphate 810 U/L (40 - 129)
== END 2023-10-07 14:30 | disposition home or self-care (01) ==
LOC: ED 06:52 → EDHOLD 06:52 → SUATTDRO 10:00 → MED 14:04
PROVIDERS: ADMIT Internal Medicine; ATTEND Student in an Organized Health Care Education/Training Program